=== PATIENT | male | born 2000 | race Caucasian/White ===

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

== ENCOUNTER 2019-09-19 10:51 | Inpatient (IN) | payer OTHER ==
[~2019-09-19] VITALS: Ht 185.4 cm; Wt 59.4 kg
[2019-09-19] VITALS (11 sets, daily range): BP systolic 95–120; BP diastolic 61–77; BMI 17.4
[~2019-09-19 10:51] MED LIST: NOVOLOG100 U/M1
[2019-09-19 11:30] LABS: BASOPHILS 0.5 % (0-2); EOSINOPHILS 0.6 % (0-7); HEMOGLOBIN 17.4 g/dL (13.5-17.5); IMMATURE GRANULOCYTES 0.8 % (0-5); LYMPHOCYTES 39.4 % (15-50); MCH 33.9 pg (26.0-34.0); MCHC 34.8 g/dL (31.0-37.0); MCV 97.5 fL (80.0-100.0); MONOCYTES 5.2 % (2-11); NEUTROPHILS 53.5 % (40-80); PLATELET COUNT 410 10x3/uL (130-400); RBC 5.13 10x6/uL (4.20-6.10); RDW 13.8 % (11.5-14.5); WBC 8.5 10x3/uL (4.8-10.8)
[2019-09-19 11:40] LABS: KETONE - SERUM MODERATE mg/dL (NEGATIVE)
[2019-09-19 11:41] LABS: CALCIUM 8.7 mg/dL (8.5-10.1); CARBON DIOXIDE 15.2 mmol/L (21.0-32.0); CHLORIDE - SERUM 99 mmol/L (98-107); CREATININE - SERUM 1.4 mg/dL (0.6-1.3); POTASSIUM - SERUM 4.1 mmol/L (3.5-5.1); SODIUM 139 mmol/L (136-145); UREA NITROGEN 16 mg/dL (7-18); eGFR NON AFRICAN AMERICAN 69 mL/min (90-120)
[2019-09-19 11:46] LABS: ALKALINE PHOSPHATASE 145 U/L (46-116); AMYLASE - SERUM 138 U/L (25-115); BILIRUBIN - TOTAL 0.69 mg/dL (0.2-1.3); LIPASE 867 U/L (73-393); MAGNESIUM - SERUM 2.2 mg/dL (1.8-2.4); PROTEIN - SERUM 8.7 g/dL (6.4-8.2)
[2019-09-19 11:47] LABS: APPEARANCE CLEAR (CLEAR); BILIRUBIN NEGATIVE (NEGATIVE); COLOR YELLOW (YELLOW); GLUCOSE 1000 mg/dL (NEGATIVE); KETONE LARGE mg/dL (NEGATIVE); NITRITE NEGATIVE (NEGATIVE); PROTEIN 1+ mg/dL (NEGATIVE); UROBILINOGEN NORMAL (NORMAL)
[2019-09-19 11:48] LABS: BACTERIA FEW /hpf (NEGATIVE); EPITHELIAL CELLS 0-5 /hpf (0-5); MUCUS <1+ /lpf (NONE SEEN); RED CELLS - URINE 0-5 /hpf (0-5); WHITE CELLS - URINE 0-5 /hpf (NEGATIVE)
[2019-09-19 11:52] LABS: ALT (SGPT) 115 U/L (10-68); CALC OSMOLALITY 289 mosm/kg (275-300); GLUCOSE 300 mg/dL (74-106)
--- NOTE | 2019-09-19 13:46 | NUR ---
REPORT CALLED TO FREDY IN ICU USING SBAR.
--- NOTE | 2019-09-19 15:00 | NUR ---
ARRIVED TO UNIT AT THIS TIME VIA WHEELCHAIR. PT ALERT AND ORIENTED. VSS. WILL CONTINUE PLAN OF CARE.
[2019-09-19] MEDS ORDERED: LANTUS SOL100 UNIT/1 SC (15:28)
--- NOTE | 2019-09-19 16:09 | NUR ---
SPOKE WITH DR TA REGARDING PT COMPLAINT OF EPIGASTRIC DISCOMFORT TO BOTH UPPER QUADRANTS. ORDER RECIEVED FOR NORCO 5 Q6H PRN PAIN. ALSO STATED TO DC PRN MORPHINE. DR TA STATED HE WOULD BE BY SHORTLY TO SEE PT. VSS. INSULIN GTT TITRATED TO ORDER. SEE DKA INSULIN ADJUSTMENT PROTOCOL FLOWSHEET. WILL CONTINUE PLAN OF CARE.
--- NOTE | 2019-09-19 16:31 | NUR ---
DR TA HERE TO SEE PT. ORDERS RECIEVED. STATED TO KEEP NS RUNNING UNTIL BLOOD GLUCOSE IS UNDER 250 THEN SWITCH TO D5NS KCL WITH 20MEQ K AT 100ML/HR. WILL SWITCH FLUIDS AT THIS TIME PER ORDER. ALSO NOTIFIED PHYSICIAN THAT SBP RUNNING 90-110, NO NEW ORDERS RECIEVED. VSS. WILL CONTINUE PLAN OF CARE.
[2019-09-19 16:36] LABS: CALC OSMOLALITY 284 mosm/kg (275-300); CALCIUM 7.5 mg/dL (8.5-10.1); CHLORIDE - SERUM 105 mmol/L (98-107); CREATININE - SERUM 1.2 mg/dL (0.6-1.3); GLUCOSE 216 mg/dL (74-106); MAGNESIUM - SERUM 1.5 mg/dL (1.8-2.4); SODIUM 140 mmol/L (136-145); UREA NITROGEN 11 mg/dL (7-18); eGFR NON AFRICAN AMERICAN 82 mL/min (90-120)
[2019-09-19 16:39] LABS: CARBON DIOXIDE 20.6 mmol/L (21.0-32.0); POTASSIUM - SERUM 2.8 mmol/L (3.5-5.1)
--- NOTE | 2019-09-19 16:47 | NUR ---
CRITICAL POTASSIUM LEVEL OF 2.[address] TA ADMIN 40MEQ K NOW AND IN 2 HOURS ADMIN ONE MORE DOSE OF 40MEQ K.
--- NOTE | 2019-09-19 18:08 | NUR ---
FAMILY AT BEDSIDE. NO ACUTE DISTRESS NOTED. VSS. WILL CONTINUE PLAN OF CARE.
--- NOTE | 2019-09-19 19:10 | NUR ---
shift assessment completed, vss - blood glucose check and insulin drip titration at this time. patient awake alert and oriented - denies pain or needs co of hunger. cpoc
[2019-09-19 19:58] LABS: CALCIUM 7.8 mg/dL (8.5-10.1); CARBON DIOXIDE 25.7 mmol/L (21.0-32.0); CHLORIDE - SERUM 107 mmol/L (98-107); CREATININE - SERUM 1.2 mg/dL (0.6-1.3); MAGNESIUM - SERUM 1.6 mg/dL (1.8-2.4); SODIUM 141 mmol/L (136-145); UREA NITROGEN 10 mg/dL (7-18); eGFR NON AFRICAN AMERICAN 82 mL/min (90-120)
[2019-09-19 19:59] LABS: CALC OSMOLALITY 279 mosm/kg (275-300); GLUCOSE 106 mg/dL (74-106); POTASSIUM - SERUM 3.5 mmol/L (3.5-5.1)
--- NOTE | 2019-09-19 20:16 | NUR ---
left message for dr elizalde regarding new patient lab values
--- NOTE | 2019-09-19 20:20 | NUR ---
dr elizalde contacted and informed of anion gap < 13. continue drip per protocol
[2019-09-20] VITALS (18 sets, daily range): BP systolic 93–126; BP diastolic 56–80
--- NOTE | 2019-09-20 03:06 | NUR ---
REASSESSMENT COMPLETED, DENIES ABD PAIN, NO TENDERNESS. INSULIN GTT INFUSING CPOC
[2019-09-20 04:23] LABS: BASOPHILS 0.3 % (0-2); EOSINOPHILS 3.8 % (0-7); IMMATURE GRANULOCYTES 0.5 % (0-5); LYMPHOCYTES 42.7 % (15-50); MCH 33.2 pg (26.0-34.0); MCHC 34.6 g/dL (31.0-37.0); MCV 96.2 fL (80.0-100.0); MEAN PLATELET VOLUME 9.4 fL (7.4-10.4); MONOCYTES 7.4 % (2-11); NEUTROPHILS 45.3 % (40-80); WBC 6.4 10x3/uL (4.8-10.8)
[2019-09-20 04:24] LABS: HEMATOCRIT 38.2 % (42.0-54.0); HEMOGLOBIN 13.2 g/dL (13.5-17.5); PLATELET COUNT 246 10x3/uL (130-400); RBC 3.97 10x6/uL (4.20-6.10)
[2019-09-20 04:43] LABS: ALKALINE PHOSPHATASE 91 U/L (46-116); AMYLASE - SERUM 132 U/L (25-115); BILIRUBIN - TOTAL 0.48 mg/dL (0.2-1.3); CALC OSMOLALITY 282 mosm/kg (275-300); CALCIUM 7.9 mg/dL (8.5-10.1); CARBON DIOXIDE 24.7 mmol/L (21.0-32.0); CHLORIDE - SERUM 111 mmol/L (98-107); CREATININE - SERUM 0.9 mg/dL (0.6-1.3); GLUCOSE 102 mg/dL (74-106); POTASSIUM - SERUM 3.7 mmol/L (3.5-5.1); SODIUM 143 mmol/L (136-145); UREA NITROGEN 8 mg/dL (7-18); eGFR NON AFRICAN AMERICAN > 90 mL/min (90-120)
[2019-09-20 04:45] LABS: ALBUMIN 2.7 g/dL (3.4-5.0); ALT (SGPT) 72 U/L (10-68); LIPASE 1129 U/L (73-393); PROTEIN - SERUM 5.8 g/dL (6.4-8.2)
[2019-09-20 08:10] LABS: CALC OSMOLALITY 283 mosm/kg (275-300); CALCIUM 7.9 mg/dL (8.5-10.1); CARBON DIOXIDE 21.6 mmol/L (21.0-32.0); CHLORIDE - SERUM 110 mmol/L (98-107); CREATININE - SERUM 1.1 mg/dL (0.6-1.3); GLUCOSE 111 mg/dL (74-106); MAGNESIUM - SERUM 1.8 mg/dL (1.8-2.4); POTASSIUM - SERUM 3.3 mmol/L (3.5-5.1); SODIUM 143 mmol/L (136-145); UREA NITROGEN 7 mg/dL (7-18); eGFR NON AFRICAN AMERICAN > 90 mL/min (90-120)
--- NOTE | 2019-09-20 08:56 | NUR ---
LYING IN BED AT THIS TIME RESTING AT THIS TIME. VSS. CALL LIGHT IN REACH. INSULIN GTT TITRATED TO ORDER, SEE DKA INSULIN ADJUSTMENT PROTOCOL FLOWSHEET. WILL CONTINUE PLAN OF CARE.
--- NOTE | 2019-09-20 10:25 | NUR ---
NO ACUTE DISTERSS NOTED. VSS. CALL LIGHT IN REACH. WILL CONTINUE PLAN OF CARE.
--- NOTE | 2019-09-20 12:27 | NUR ---
UP IN BED WATCHING TV AT THIS TIME. NO ACUTE DISTRESS NOTED. VSS. WILL CONTINUE PLAN OF CARE.
--- NOTE | 2019-09-20 13:24 | NUR ---
PER DR TA, DC NS AT 100ML/HR SINCE PT IS EATING/DRINKING. NO ACUTE DISTRESS NOTED. VSS. WILL CONTINUE PLAN OF CARE.
--- NOTE | 2019-09-20 15:32 | NUR ---
CHG BATH PERFORMED BY PT. TOTAL LINEN CHANGE PROVIDED. NO ACUTE DISTRESS NOTED. VSS. WILL CONTINUE PLAN OF CARE.
--- NOTE | 2019-09-20 16:12 | NUR ---
CONTINENT BOWEL MOVEMENT NOTED AT THIS TIME. VSS. PT PROVIDED OWN FRANCISCO CARE. CALL LIGHT IN REACH. WILL CONTINUE PLAN OF CARE.
--- NOTE | 2019-09-20 17:39 | NUR ---
PER DR TA, INCREASE SLIDING SCALE TO HIGH RESISTANCE SINCE BLOOD SUGAR IS 300 AND CAN TRANSFER TO THE FLOOR. NO ACUTE DISTRESS NOTED. WILL CONTINUE PLAN OF CARE.
--- NOTE | 2019-09-20 18:19 | NUR ---
PT TRANSFERRED TO 2235. TRANSFERRED WITH ALL PERSONAL ITEMS VIA WHEELCHAIR ACCOMPANIED BY HOSPITAL STAFF. REPORT CALLED BEFORE PT WAS TRASFERRED TO ROOM. NO ACUTE DISTRESS NOTED. NO FURTHER ACTIONS.
--- NOTE | 2019-09-20 18:22 | NUR ---
PT ARRIVED TO ROOM VIA WHEELCHAIR FROM ICU. CARE ASSUMED. PT REQUESTING SANDWICH, CHICKEN BROTH, DIET SODA AND A SHOWER. ADDRESSED DIET NEEDS AND WILL FOLLOW UP WITH SHOWER. NO OTHER NEEDS AT THIS TIME.
--- NOTE | 2019-09-20 19:00 | NUR ---
BEDSIDE REPORT RECEIVED AND CARE OF PT ASSUMED. PT AMBULATING IN THE HALLWAY AT THIS TIME. IV TO LEFT AC SALINE LOCKED.
--- NOTE | 2019-09-20 20:26 | NUR ---
HS MEDICATIONS GIVEN. FSBS 367 THIS CHECK....GAVE 15 UNITS PER PT REQUEST, HE HAD ALREADY TAKEN 4 UNITS OF HIS OWN INSULIN. WILL CONTINUE TO MONITOR FOR NEEDS.
--- NOTE | 2019-09-20 20:50 | NUR ---
PT HAD FOOD DELIVERED TO ROOM.
[2019-09-21] VITALS: BP 122/79
[2019-09-21 04:00] VITALS: BP 123/85
[2019-09-21 06:01] LABS: HEMATOCRIT 36.9 % (42.0-54.0); HEMOGLOBIN 12.5 g/dL (13.5-17.5); MCH 33.3 pg (26.0-34.0); MCHC 33.9 g/dL (31.0-37.0); MEAN PLATELET VOLUME 10.2 fL (7.4-10.4); PLATELET COUNT 253 10x3/uL (130-400); RBC 3.75 10x6/uL (4.20-6.10); RDW 14.4 % (11.5-14.5); WBC 4.8 10x3/uL (4.8-10.8)
[2019-09-21 06:14] LABS: MCV 98.4 fL (80.0-100.0)
[2019-09-21 06:37] LABS: ALBUMIN 2.7 g/dL (3.4-5.0); ALKALINE PHOSPHATASE 118 U/L (46-116); CARBON DIOXIDE 24.4 mmol/L (21.0-32.0); CHLORIDE - SERUM 108 mmol/L (98-107); POTASSIUM - SERUM 3.7 mmol/L (3.5-5.1); PROTEIN - SERUM 5.6 g/dL (6.4-8.2); SODIUM 142 mmol/L (136-145); UREA NITROGEN 8 mg/dL (7-18)
[2019-09-21 06:41] LABS: ALT (SGPT) 96 U/L (10-68); AMYLASE - SERUM 241 U/L (25-115); CALC OSMOLALITY 290 mosm/kg (275-300); CREATININE - SERUM 0.8 mg/dL (0.6-1.3); GLUCOSE 270 mg/dL (74-106); LIPASE 1704 U/L (73-393); eGFR NON AFRICAN AMERICAN > 90 mL/min (90-120)
[2019-09-21 08:21] VITALS: BP 127/83
--- NOTE | 2019-09-21 08:45 | NUR ---
IV TO LEFT AC PATENT. STATES HE IS NAUSEOUS. AND PAIN IS A 6 OUT OF 10 ON THE PAIN SCALE. ON PHONE WITH MOTHER. CL IN REACH. LIGHTS TURNED DOWN. [facility]
[2019-09-21 08:55] LABS: EOSINOPHILS 2 % (0-7); LYMPHOCYTES 49 % (15-50); MONOCYTES 8 % (2-11); NEUTROPHILS 40 % (40-80); PLATELET ESTIMATE NORMAL
[2019-09-21 08:56] LABS: HYPOCHROMASIA OCC
[2019-09-21 12:47] VITALS: Ht 185.4 cm; Wt 59.4 kg
[2019-09-21 13:15] VITALS: BP 128/72
[2019-09-21 16:19] VITALS: BP 120/86
--- NOTE | 2019-09-21 20:00 | NUR ---
ASSESSMENT PER FLOWSHEET. IV PATENT LEFT AC OF NS AT 125CC'S/HR, SITE CLEAR. FAMILY MEMBERS AT BEDSIDE. DENIES NEEDS UP AD TORIE SHOWER TAKEN. SELF CARE.
[2019-09-21 20:53] VITALS: BP 126/70
--- NOTE | 2019-09-21 21:00 | NUR ---
MEDS GIVEN PER MAR. UCKE=022. STATES WILL ONLY TAKE 2 UNITS HUMALOG AND LANTUS 46 UNITS GIVEN SUBC.
[2019-09-22 01:15] VITALS: BP 124/72
--- NOTE | 2019-09-22 01:40 | NUR ---
PATIENT AWAKE REQUESTING BLOOD SUGAR BE TAKEN FSBS=73. PT STATES HE ATE A HONEY BUN CAUSE HE FELT HIS SUGAR WAS DROPPING.
[2019-09-22 04:44] VITALS: BP 112/70
--- NOTE | 2019-09-22 06:00 | NUR ---
[id number] NO COVERAGE
[2019-09-22 06:37] LABS: ALBUMIN 2.4 g/dL (3.4-5.0); ALKALINE PHOSPHATASE 93 U/L (46-116); ALT (SGPT) 77 U/L (10-68); BILIRUBIN - TOTAL 0.23 mg/dL (0.2-1.3); CALCIUM 7.8 mg/dL (8.5-10.1); CARBON DIOXIDE 25.4 mmol/L (21.0-32.0); CHLORIDE - SERUM 113 mmol/L (98-107); CREATININE - SERUM 0.6 mg/dL (0.6-1.3); PROTEIN - SERUM 5.3 g/dL (6.4-8.2); SODIUM 148 mmol/L (136-145); UREA NITROGEN 7 mg/dL (7-18); eGFR NON AFRICAN AMERICAN > 90 mL/min (90-120)
[2019-09-22 06:47] LABS: AMYLASE - SERUM 119 U/L (25-115); CALC OSMOLALITY 294 mosm/kg (275-300); GLUCOSE 149 mg/dL (74-106); LIPASE 709 U/L (73-393); POTASSIUM - SERUM 3.1 mmol/L (3.5-5.1)
--- NOTE | 2019-09-22 07:10 | NUR ---
PT RESTING IN BED. NO SIGNS OF DISTRESS. IV TO LEFT AC PATENT NO REDNESS OR TENDERNESS. DENIES ANY FURTHER NEED AT THIS TIME. CALL LIGHT IN REACH. BED LOW POSITION. NO FAMILY AT BEDSIDE AT THIS TIME.
[2019-09-22 07:20] LABS: BASOPHILS 0.6 % (0-2); EOSINOPHILS 5.2 % (0-7); HEMATOCRIT 36.4 % (42.0-54.0); HEMOGLOBIN 12.2 g/dL (13.5-17.5); IMMATURE GRANULOCYTES 0.4 % (0-5); LYMPHOCYTES 55.6 % (15-50); MCHC 33.5 g/dL (31.0-37.0); MCV 98.4 fL (80.0-100.0); MEAN PLATELET VOLUME 10.6 fL (7.4-10.4); MONOCYTES 9.1 % (2-11); NEUTROPHILS 29.1 % (40-80); PLATELET COUNT 240 10x3/uL (130-400); RDW 14.4 % (11.5-14.5); WBC 4.8 10x3/uL (4.8-10.8)
[2019-09-22 08:35] VITALS: BP 104/81
[2019-09-22 12:15] VITALS: BP 124/87
--- NOTE | 2019-09-22 15:58 | MORECARE ---
CASE MANAGEMENT DISCHARGE SUMMARY PATIENT: ERICA GUAMAN UNIT: [id number] ADM DATE: 09/19/19 AGE: 19 : 99 SEX: M ROOM/BED: D.2235 AUTHOR: ZEV,DOC PHYSICIAN: REFERRING PHYSICIAN: VINAY TA MD DATE OF SERVICE: 09/22/19 Discharge Plan Patient Name: ERICA GUAMAN Facility: [facility]:[place] : 2000 Planned Disposition: Home Anticipated Discharge Date: 09/23/19 Discharge Date: Expected LOS: 4 Initial Reviewer: [email or web address] Initial Review Date: 09/22/2019 Generated: 09/22/19 4:58 pm Comments DCP- Discharge Planning Updated by [email or web address]: Briseyda hSaver on 09/22/19 2:[address] Patient Name: ERICA GUAMAN Admission Status: ER Accout number: [id number] Admission Date: 09-19-2019 : 2000 Admission Diagnosis:TYPE 1 DIABETES MELLITUS WITH KETOACIDOSIS WITHOUT COMA Attending: VINAY TA Current LOS: 3 Anticipated DC Date: 09-23-2019 Planned Disposition: Home Primary Insurance: [facility] Discharge Planning Comments: CM met with patient to complete initial dc planning assessment. CM educated patient on the CM role and verbal consent given by patient to complete assessment. Patient lives at home alone. At discharge patient plans to return and feels this is a safe discharge. CM discussed availability of home health, rehab services, and medical equipment. Patient denied known discharge needs at this time. States he has a glucometer and supplies and checks his blood sugar 5-6 times a day. States he has an appointment to see Dr. Cifuentes on October 13 for his first visit as his PCP. Patient states his brother will take him home at discharge. CM will continue to follow and will assist as needed with dc plans/needs. Coroner Forensic Technician: Briseyda Shaver DCPIA - Discharge Planning Initial Assessment Updated by [email or web address]: Briseyda Shaver on 09/22/19 3:55 pm * Is the patient Alert and Oriented? Yes * How many steps to enter\exit or inside your home? 0/0 * PCP Dr. Cifuentes * Pharmacy [facility] on [address] * Preadmission Environment Home Alone * ADLs Independent * Equipment Glucometer * List name and contact numbers for known caregivers / representatives who currently or will assist patient after discharge: Jd garcia - [phone] * Verbal permission to speak to the caregivers and representatives has been obtained from the patient. Yes * Community resources currently utilized None * Additional services required to return to the preadmission environment? No * Can the patient safely return to the preadmission environment? Yes * Has this patient been hospitalized within the prior 30 days at any hospital? No Patient Name: ERICA GUAMAN Page [id number] at 1558 All edits/amendments must be made on the electronic document DICTATION DATE: 09/22/191557 WREATH AND GARLAND MAKER: MARTINE 09/22/191557 RPT#: [id number] DC DATE: STATUS: ADM IN [facility] [address] [place] [address] END OF REPORT
[2019-09-22 16:51] VITALS: BP 121/91
--- NOTE | 2019-09-22 18:16 | NUR ---
I have reviewed this patient and I concur with the Shift Assessment completed by the Licensed Practical Nurse today this shift.
[2019-09-22 20:48] VITALS: BP 143/96
[2019-09-23 00:59] VITALS: BP 135/88
[2019-09-23 05:12] VITALS: BP 135/93
--- NOTE | 2019-09-23 05:44 | NUR ---
1900)REQUESTING IV BE REMOVEDFROM LAC STATES ITS SORE.IV REMOVED ATTEMPTED TO RESTART REFUSED STATES I'M GOING HOME IN MORNING ANYWAY.NOT RESTARTED PER PATIENT REQUEST.2200) OFFFLOOR FOR 45 MINUTES RETURNED TO ROOM 2245. FSBS 232 REQUEST TO TAKE ONLY ONE UNIT HUMALOG SLIDING SCALE AND 43UNITS LANTUS STATUS BOTTOMED OUT MORNING BEFORE. WILL CONTINUE TO MONITOR AND FOLLOW CURRENT PLAN OF CARE
--- NOTE | 2019-09-23 06:04 | NUR ---
I have reviewed this patient and I concur with the Shift Assessment completed by the Licensed Practical Nurse today this shift.
[2019-09-23 06:27] LABS: HEMATOCRIT 37.5 % (42.0-54.0); HEMOGLOBIN 12.2 g/dL (13.5-17.5); MCH 32.6 pg (26.0-34.0); MCHC 32.5 g/dL (31.0-37.0); MCV 100.3 fL (80.0-100.0); MEAN PLATELET VOLUME 10.4 fL (7.4-10.4); PLATELET COUNT 250 10x3/uL (130-400); RBC 3.74 10x6/uL (4.20-6.10); RDW 14.5 % (11.5-14.5); WBC 5.8 10x3/uL (4.8-10.8)
[2019-09-23 06:30] LABS: ALBUMIN 2.5 g/dL (3.4-5.0); ALKALINE PHOSPHATASE 121 U/L (46-116); ALT (SGPT) 81 U/L (10-68); AMYLASE - SERUM 140 U/L (25-115); BILIRUBIN - TOTAL 0.27 mg/dL (0.2-1.3); CALCIUM 7.9 mg/dL (8.5-10.1); CARBON DIOXIDE 28.9 mmol/L (21.0-32.0); CHLORIDE - SERUM 110 mmol/L (98-107); POTASSIUM - SERUM 3.2 mmol/L (3.5-5.1); PROTEIN - SERUM 5.5 g/dL (6.4-8.2); SODIUM 145 mmol/L (136-145)
[2019-09-23 06:31] LABS: CALC OSMOLALITY 293 mosm/kg (275-300); CREATININE - SERUM 0.8 mg/dL (0.6-1.3); GLUCOSE 209 mg/dL (74-106); LIPASE 948 U/L (73-393); UREA NITROGEN 9 mg/dL (7-18); eGFR NON AFRICAN AMERICAN > 90 mL/min (90-120)
[2019-09-23 08:37] VITALS: BP 136/91
[2019-09-23 09:26] LABS: EOSINOPHILS 7 % (0-7); LYMPHOCYTES 51 % (15-50); MONOCYTES 8 % (2-11); NEUTROPHILS 31 % (40-80); PLATELET ESTIMATE NORMAL
[2019-09-23 09:27] LABS: ANISOCYTOSIS OCC; POLYCHROMASIA OCC
--- NOTE | 2019-09-23 11:47 | MORECARE ---
CASE MANAGEMENT DISCHARGE SUMMARY PATIENT: ERICA GUAMAN UNIT: [id number] ADM DATE: 09/19/19 AGE: 19 : 99 SEX: M ROOM/BED: D.2235 AUTHOR: ZEVDOC PHYSICIAN: REFERRING PHYSICIAN: VINAY TA MD DATE OF SERVICE: 09/23/19 Discharge Plan Patient Name: ERICA GUAMAN Facility: [facility]:[place] : 2000 Planned Disposition: Home Anticipated Discharge Date: 09/23/19 Discharge Date: Expected LOS: 4 Initial Reviewer: [email or web address] Initial Review Date: 09/22/2019 Generated: 09/23/19 12:47 pm Comments DCP- Discharge Planning Updated by [email or web address]: Briseyda Shaver on 09/23/19 10:[address] Patient Name: ERICA GUAMAN Encounter No: [id number] : 2000 Primary Insurance: [employer] [facility] Anticipated DC Date: 09-23-2019 Planned Disposition: Home External Planned Provider: : DCP follow-up note: Patient in agreement with discharge plan. No changes to plan. Case management will follow and assist as needed. Briseyda Shaver DCP- Discharge Planning Updated by [email or web address]: Briseyda Shaver on 09/22/19 2:[address] Patient Name: ERICA GUAMAN Admission Status: ER Accout number: [id number] Admission Date: 09-19-2019 : 2000 Admission Diagnosis:TYPE 1 DIABETES MELLITUS WITH KETOACIDOSIS WITHOUT COMA Attending: VINAY TA Current LOS: 3 Anticipated DC Date: 09-23-2019 Planned Disposition: Home Primary Insurance: [employer] [facility] Discharge Planning Comments: CM met with patient to complete initial dc planning assessment. CM educated patient on the CM role and verbal consent given by patient to complete assessment. Patient lives at home alone. At discharge patient plans to return and feels this is a safe discharge. CM discussed availability of home health, rehab services, and medical equipment. Patient denied known discharge needs at this time. States he has a glucometer and supplies and checks his blood sugar 5-6 times a day. States he has an appointment to see Dr. Cifuentes on October 13 for his first visit as his PCP. Patient states his brother will take him home at discharge. CM will continue to follow and will assist as needed with dc plans/needs. Mc Kay Machine Operator: Briseyda Shaver DCPIA - Discharge Planning Initial Assessment Updated by [email or web address]: Briseyda Shaver on 09/22/19 3:55 pm * Is the patient Alert and Oriented? Yes * How many steps to enter\exit or inside your home? 0/0 * PCP Dr. Cifuentes * Pharmacy [facility] on [address] * Preadmission Environment Home Alone * ADLs Independent * Equipment Glucometer * List name and contact numbers for known caregivers / representatives who currently or will assist patient after discharge: Jd Nixon - brother - [phone] * Verbal permission to speak to the caregivers and representatives has been obtained from the patient. Yes * Community resources currently utilized None * Additional services required to return to the preadmission environment? No * Can the patient safely return to the preadmission environment? Yes * Has this patient been hospitalized within the prior 30 days at any hospital? No Last DP export: 09/22/19 2:58 Patient Name: ERICA GUAMAN Page 22742 at 1147 All edits/amendments must be made on the electronic document DICTATION DATE: 09/23/191146 SIGN MAINTENANCE: MARTINE 09/23/191146 RPT#: [id number] DC DATE: STATUS: ADM IN [facility] [address] [place] [address] END OF REPORT
[2019-09-23 11:59] VITALS: BP 152/90
--- NOTE | 2019-09-23 12:43 | NUR ---
REVIEWED DC PAPERS WITH PT, VOICED NO CONCERNS, WILL D/C AFTER LUNCH
--- NOTE | 2019-09-24 06:55 | MORECARE ---
CASE MANAGEMENT DISCHARGE SUMMARY PATIENT: ERICA GUAMAN UNIT: [id number] ADM DATE: 09/19/19 AGE: 19 : 99 SEX: M ROOM/BED: D.2235 AUTHOR: ZEV,DOC PHYSICIAN: REFERRING PHYSICIAN: VINAY TA MD DATE OF SERVICE: 09/24/19 Discharge Plan Patient Name: ERICA GUAMAN Facility: [facility]:[place] : 2000 Planned Disposition: Home Anticipated Discharge Date: 09/23/19 Discharge Date: 09/23/2019 Expected LOS: 4 Initial Reviewer: [email or web address] Initial Review Date: 09/22/2019 Generated: 09/24/19 7:55 am DCP- Discharge Planning Updated by [email or web address]: Briseyda Shaver on 09/23/19 10:[address] Patient Name: ERICA GUAMAN Encounter No: [id number] : 2000 Primary Insurance: [employer] [facility] Anticipated DC Date: 09-23-2019 Planned Disposition: Home External Planned Provider: : DCP follow-up note: Patient in agreement with discharge plan. No changes to plan. Case management will follow and assist as needed. Briseyda Shaver DCP- Discharge Planning Updated by [email or web address]: Briseyda Shaver on 09/22/19 2:[address] Patient Name: ERICA GUAMAN Admission Status: ER Accout number: [id number] Admission Date: 09-19-2019 : 2000 Admission Diagnosis:TYPE 1 DIABETES MELLITUS WITH KETOACIDOSIS WITHOUT COMA Attending: VINAY TA Current LOS: 3 Anticipated DC Date: 09-23-2019 Planned Disposition: Home Primary Insurance: [employer] [facility] Discharge Planning Comments: CM met with patient to complete initial dc planning assessment. CM educated patient on the CM role and verbal consent given by patient to complete assessment. Patient lives at home alone. At discharge patient plans to return and feels this is a safe discharge. CM discussed availability of home health, rehab services, and medical equipment. Patient denied known discharge needs at this time. States he has a glucometer and supplies and checks his blood sugar 5-6 times a day. States he has an appointment to see Dr. Cifuentes on October 13 for his first visit as his PCP. Patient states his brother will take him home at discharge. CM will continue to follow and will assist as needed with dc plans/needs. Tester Armature Or Fields: Briseyda Shaver DCPIA - Discharge Planning Initial Assessment Updated by [email or web address]: Briseyda Shaver on 09/22/19 3:55 pm * Is the patient Alert and Oriented? Yes * How many steps to enter\exit or inside your home? 0/0 * PCP Dr. Cifuentes * Pharmacy [facility] on [address] * Preadmission Environment Home Alone * ADLs Independent * Equipment Glucometer * List name and contact numbers for known caregivers / representatives who currently or will assist patient after discharge: Jd Nixon - brother - [phone] * Verbal permission to speak to the caregivers and representatives has been obtained from the patient. Yes * Community resources currently utilized None * Additional services required to return to the preadmission environment? No * Can the patient safely return to the preadmission environment? Yes * Has this patient been hospitalized within the prior 30 days at any hospital? No Last DP export: 09/23/19 10:47 Patient Name: ERICA GUAMAN Page 13678 at 0655 All edits/amendments must be made on the electronic document DICTATION DATE: 09/24/19654 MOLDED GOODS INSPECTOR TRIMMER: MARTINE 09/24/19654 RPT#: [id number] DC DATE:09/23/19 STATUS: DIS IN [facility] [address] [place] [address] END OF REPORT
== END 2019-09-23 13:10 | disposition home or self-care (01) | DRG 438 ==
LOC: D.ER 10:51 → D.MS 12:27 → D.ICU 12:27 → D.MS 09-20 18:20
PROVIDERS: Family Medicine; ADMIT Internal Medicine Nephrology; ATTEND Internal Medicine Nephrology
DX: K85.90 Acute pancreatitis without necrosis or infection, unspecified (principal); E10.10 Type 1 diabetes mellitus with ketoacidosis without coma; N17.9 Acute kidney failure, unspecified; Z79.4 Long term (current) use of insulin; R74.0 Nonspecific elevation of levels of transaminase and lactic acid dehydrogenase [LDH]; E86.0 Dehydration; E10.65 Type 1 diabetes mellitus with hyperglycemia; Z91.11 Patient's noncompliance with dietary regimen